=== PATIENT | female | born 1945 | race Caucasian/White ===

== ENCOUNTER → 2017-07-14 | Outpatient (CLI) | payer OTHER ==
[~2017-07-14] MED LIST: DEPO-MEDRO40 MG/1 ML IJ; DICLOFENAC POTA50 MG PO; GABAPENTIN100 MG PO; KENALOG-1010 MG/1 ML IJ; ORPHENADRI30 MG/1 M1 IJ; PERCOCET 5/321 UDTAB PO; POLY119PG PO; SURFAK240 M1 PO; TIZANIDINE HCL2 MG PO; TORADOL60 MG IM
== END | disposition home or self-care (01) ==
LOC: RAD 12:12
DX: M54.6 Pain in thoracic spine (principal); M54.5 Low back pain

== ENCOUNTER 2017-07-19 10:38 | Outpatient (CLI) | payer OTHER | END 2017-07-19 10:47 | disposition home or self-care (01) | LOC: SONOGRAMA 10:38 | DX: R10.2 Pelvic and perineal pain (principal) ==

== ENCOUNTER 2017-08-17 10:53 | Outpatient (CLI) | payer OTHER | END 2017-08-17 16:56 | disposition home or self-care (01) | LOC: MRI 10:53 | DX: M43.17 Spondylolisthesis, lumbosacral region (principal) | CPT/HCPCS: 72148 ==

== ENCOUNTER 2017-09-12 11:45 | Outpatient (CLI) | payer OTHER | END 2017-09-12 16:14 | disposition home or self-care (01) | LOC: RAD 11:45 | DX: M25.50 Pain in unspecified joint (principal); R26.2 Difficulty in walking, not elsewhere classified; E66.9 Obesity, unspecified ==

== ENCOUNTER 2017-12-14 10:48 | Outpatient (CLI) | payer OTHER | END 2017-12-14 16:33 | disposition home or self-care (01) | LOC: NUCLEAR 10:48 | DX: M81.0 Age-related osteoporosis without current pathological fracture (principal) ==

== ENCOUNTER 2018-01-11 09:29 | Outpatient (CLI) | payer OTHER | END 2018-01-11 12:02 | disposition home or self-care (01) | LOC: MRI 09:29 | DX: G80.8 Other cerebral palsy (principal) | CPT/HCPCS: 70553; A9579 ==

== ENCOUNTER 2018-01-18 07:36 | Outpatient (CLI) | payer OTHER | END 2018-01-18 07:54 | disposition home or self-care (01) | LOC: NUCLEAR 07:36 | DX: I20.0 Unstable angina (principal); I25.10 Atherosclerotic heart disease of native coronary artery without angina pectoris | CPT/HCPCS: 78452; 93017; A9500; J1250 ==

== ENCOUNTER 2018-03-10 11:59 | Outpatient (CLI) | payer OTHER | END 2018-03-10 17:00 | disposition home or self-care (01) | LOC: MRI 11:59 | DX: I67.1 Cerebral aneurysm, nonruptured (principal) | CPT/HCPCS: 70544 ==

== ENCOUNTER 2018-05-17 11:03 | Outpatient (CLI) | payer OTHER | END 2018-05-17 11:51 | disposition home or self-care (01) | LOC: SONOGRAMA 11:03 | DX: N93.8 Other specified abnormal uterine and vaginal bleeding (principal); N94.6 Dysmenorrhea, unspecified ==

== ENCOUNTER 2018-08-02 08:58 | Outpatient (CLI) | payer OTHER | END 2018-08-02 09:05 | disposition home or self-care (01) | LOC: MAMO-SONO 08:58 | DX: R10.84 Generalized abdominal pain (principal) ==

== ENCOUNTER 2018-10-10 10:13 | Outpatient (CLI) | payer OTHER | END 2018-10-10 14:42 | disposition home or self-care (01) | LOC: SONOGRAMA 10:13 → RAD 10:13 | DX: M25.562 Pain in left knee (principal); M25.561 Pain in right knee ==

== ENCOUNTER 2019-01-15 09:27 | Outpatient (CLI) | payer OTHER | END 2019-01-15 09:29 | disposition home or self-care (01) | LOC: TOM 09:27 | DX: K40.90 Unilateral inguinal hernia, without obstruction or gangrene, not specified as recurrent (principal) ==

== ENCOUNTER 2019-06-29 12:00 | Outpatient (CLI) | payer OTHER | END 2019-06-29 12:12 | disposition home or self-care (01) | LOC: RAD 12:00 | DX: M17.0 Bilateral primary osteoarthritis of knee (principal) ==

== ENCOUNTER 2020-02-13 09:22 | Outpatient (CLI) | payer OTHER | END 2020-02-13 09:36 | disposition home or self-care (01) | LOC: RAD 09:22 | PROVIDERS: ATTEND Orthopaedic Surgery Adult Reconstructive Orthopaedic Surgery | DX: M17.0 Bilateral primary osteoarthritis of knee (principal) ==

== ENCOUNTER → 2020-03-07 | Outpatient (CLI) | payer OTHER | END | disposition home or self-care (01) | LOC: NUCLEAR 09:00 | PROVIDERS: ATTEND Student in an Organized Health Care Education/Training Program | DX: I87.2 Venous insufficiency (chronic) (peripheral) (principal) ==

== ENCOUNTER 2020-03-31 09:59 | Outpatient (CLI) | payer OTHER | END 2020-03-31 10:04 | disposition home or self-care (01) | LOC: RAD 09:59 | PROVIDERS: ATTEND Orthopaedic Surgery | DX: M21.072 Valgus deformity, not elsewhere classified, left ankle (principal); M21.071 Valgus deformity, not elsewhere classified, right ankle; M79.671 Pain in right foot; M79.672 Pain in left foot ==

== ENCOUNTER 2020-04-11 08:32 | Outpatient (CLI) | payer OTHER | END 2020-04-11 08:58 | disposition home or self-care (01) | LOC: NUCLEAR 08:32 | PROVIDERS: ATTEND Orthopaedic Surgery | DX: M25.562 Pain in left knee (principal); Z96.652 Presence of left artificial knee joint; M81.0 Age-related osteoporosis without current pathological fracture | CPT/HCPCS: 77080; 78315; A9503 ==

== ENCOUNTER 2020-05-26 10:24 | Outpatient (CLI) | payer OTHER | END 2020-05-26 18:00 | disposition home or self-care (01) | LOC: LAB 10:24 | PROVIDERS: ATTEND Orthopaedic Surgery | DX: E21.2 Other hyperparathyroidism (principal); E55.9 Vitamin D deficiency, unspecified; M85.88 Other specified disorders of bone density and structure, other site; E88.89 Other specified metabolic disorders; M81.8 Other osteoporosis without current pathological fracture; E56.1 Deficiency of vitamin K ==

== ENCOUNTER 2020-05-30 13:09 | Outpatient (CLI) | payer OTHER | END 2020-05-30 15:17 | disposition home or self-care (01) | LOC: NUCLEAR 13:09 | PROVIDERS: ATTEND Orthopaedic Surgery | DX: M25.562 Pain in left knee (principal); Z96.652 Presence of left artificial knee joint | CPT/HCPCS: 78802; A9556 ==

== ENCOUNTER 2020-06-30 04:07 | Outpatient (CLI) | payer OTHER | END 2020-06-30 04:08 | disposition home or self-care (01) | LOC: PPH VACUNA 04:07 | PROVIDERS: ATTEND Emergency Medicine Pediatric Emergency Medicine | DX: Z23 Encounter for immunization (principal) ==

== ENCOUNTER 2020-07-21 17:17 | Outpatient (CLI) | payer OTHER | END 2020-07-21 17:18 | disposition home or self-care (01) | LOC: PPH VACUNA 17:17 | PROVIDERS: ATTEND Emergency Medicine Pediatric Emergency Medicine | DX: Z23 Encounter for immunization (principal) ==

== ENCOUNTER 2020-08-11 10:29 | Outpatient (CLI) | payer OTHER | END 2020-08-11 10:31 | disposition home or self-care (01) | LOC: NUCLEAR 10:29 | PROVIDERS: ATTEND Orthopaedic Surgery | DX: I87.2 Venous insufficiency (chronic) (peripheral) (principal); I80.11 Phlebitis and thrombophlebitis of right femoral vein ==

== ENCOUNTER 2020-12-30 10:32 | Outpatient (CLI) | payer OTHER ==
[~2020-12-30 10:32] MED LIST changes: +ETODOLAC300 MG PO; +ETODOLAC600 MG PO
== END 2020-12-30 10:43 | disposition home or self-care (01) ==
LOC: RAD 10:32
DX: M43.17 Spondylolisthesis, lumbosacral region (principal); M54.5 Low back pain

== ENCOUNTER 2021-05-05 09:36 | Outpatient (CLI) | payer OTHER ==
[~2021-05-05 09:36] MED LIST changes: +DICLOFENAC EPO1 EACH TD
== END 2021-05-05 09:41 | disposition home or self-care (01) ==
LOC: RAD 09:36
PROVIDERS: ATTEND Internal Medicine Pulmonary Disease
DX: I10 Essential (primary) hypertension (principal); R06.02 Shortness of breath; J45.40 Moderate persistent asthma, uncomplicated; G47.33 Obstructive sleep apnea (adult) (pediatric); J30.1 Allergic rhinitis due to pollen

== ENCOUNTER 2021-05-07 10:29 | Outpatient (CLI) | payer OTHER | END 2021-05-07 10:43 | disposition home or self-care (01) | LOC: SONOGRAMA 10:29 | PROVIDERS: ATTEND Internal Medicine Endocrinology, Diabetes & Metabolism | DX: E04.1 Nontoxic single thyroid nodule (principal); E04.8 Other specified nontoxic goiter ==

== ENCOUNTER 2021-05-26 08:56 | Outpatient (CLI) | payer OTHER | END 2021-05-26 09:02 | disposition home or self-care (01) | LOC: TOM 08:56 | PROVIDERS: ATTEND Emergency Medicine | DX: Q24.8 Other specified congenital malformations of heart (principal) ==

== ENCOUNTER 2021-07-07 10:01 | Outpatient (CLI) | payer OTHER | END 2021-07-07 14:33 | disposition home or self-care (01) | LOC: LAB 10:01 | PROVIDERS: ATTEND Orthopaedic Surgery | DX: E55.9 Vitamin D deficiency, unspecified (principal); M85.9 Disorder of bone density and structure, unspecified; E56.1 Deficiency of vitamin K; E21.3 Hyperparathyroidism, unspecified; E88.9 Metabolic disorder, unspecified; M81.8 Other osteoporosis without current pathological fracture; D64.9 Anemia, unspecified ==

== ENCOUNTER 2021-08-11 09:58 | Outpatient (CLI) | payer OTHER | END 2021-08-11 10:06 | disposition home or self-care (01) | LOC: TOM 09:58 | DX: K57.32 Diverticulitis of large intestine without perforation or abscess without bleeding (principal) ==

== ENCOUNTER 2021-08-13 08:00 | Outpatient (CLI) | payer OTHER | END 2021-08-13 08:30 | disposition home or self-care (01) | LOC: PPH VACUNA 08:00 | PROVIDERS: ATTEND Emergency Medicine Pediatric Emergency Medicine | DX: Z23 Encounter for immunization (principal) ==

== ENCOUNTER 2022-01-22 08:39 | Outpatient (CLI) | payer OTHER | END 2022-01-22 08:45 | disposition home or self-care (01) | LOC: TOM 08:39 | PROVIDERS: ATTEND Internal Medicine Gastroenterology | DX: K57.30 Diverticulosis of large intestine without perforation or abscess without bleeding (principal) | CPT/HCPCS: 74177; Q9965 ==

== ENCOUNTER 2022-05-18 10:44 | Outpatient (CLI) | payer OTHER | END 2022-05-18 10:53 | disposition home or self-care (01) | LOC: RAD 10:44 | PROVIDERS: ATTEND Student in an Organized Health Care Education/Training Program | DX: M25.559 Pain in unspecified hip (principal); M25.562 Pain in left knee; M22.41 Chondromalacia patellae, right knee ==

== ENCOUNTER 2022-06-03 11:19 | Outpatient (CLI) | payer OTHER | END 2022-06-03 11:31 | disposition home or self-care (01) | LOC: SONOGRAMA 11:19 | PROVIDERS: ATTEND Physical Medicine & Rehabilitation | DX: M25.512 Pain in left shoulder (principal); M25.511 Pain in right shoulder ==

== ENCOUNTER 2022-07-09 09:35 | Outpatient (CLI) | payer OTHER | END 2022-07-09 09:47 | disposition home or self-care (01) | LOC: TOM 09:35 | PROVIDERS: ATTEND Internal Medicine | DX: I31.8 Other specified diseases of pericardium (principal) ==

== ENCOUNTER → 2022-09-01 | Outpatient (CLI) | payer OTHER | END | disposition home or self-care (01) | LOC: TOM 09:54 | DX: K57.92 Diverticulitis of intestine, part unspecified, without perforation or abscess without bleeding (principal) ==

== ENCOUNTER 2022-12-10 10:35 | Outpatient (CLI) | payer OTHER | END 2022-12-10 10:39 | disposition home or self-care (01) | LOC: RAD 10:35 | DX: J45.40 Moderate persistent asthma, uncomplicated (principal) ==

== ENCOUNTER 2023-01-27 07:54 | Outpatient (CLI) | payer OTHER | END 2023-01-27 07:59 | disposition home or self-care (01) | LOC: NUCLEAR 07:54 | PROVIDERS: ATTEND Student in an Organized Health Care Education/Training Program | DX: I80.291 Phlebitis and thrombophlebitis of other deep vessels of right lower extremity (principal) ==

== ENCOUNTER 2023-12-12 09:48 | Outpatient (CLI) | payer OTHER | END 2023-12-12 09:57 | disposition home or self-care (01) | LOC: TOM 09:48 | PROVIDERS: ATTEND Internal Medicine | DX: M15.0 Primary generalized (osteo)arthritis (principal); M75.52 Bursitis of left shoulder; M75.51 Bursitis of right shoulder ==

== ENCOUNTER 2024-02-07 09:12 | Outpatient (CLI) | payer OTHER | END 2024-02-07 09:18 | disposition home or self-care (01) | LOC: TOM 09:12 | PROVIDERS: ATTEND Student in an Organized Health Care Education/Training Program | DX: K57.33 Diverticulitis of large intestine without perforation or abscess with bleeding (principal) ==

== ENCOUNTER 2024-02-15 13:04 | Outpatient (CLI) | payer OTHER ==
[~2024-02-15 13:04] MED LIST changes: +MEDROLPACK PO; +VOLTAREN ARTHRI20 GM TOP
== END 2024-02-15 13:10 | disposition home or self-care (01) ==
LOC: SONOGRAMA 13:04
PROVIDERS: ATTEND Physical Medicine & Rehabilitation
DX: M25.512 Pain in left shoulder (principal)

== ENCOUNTER 2024-03-08 11:23 | Outpatient (CLI) | payer OTHER | END 2024-03-08 11:30 | disposition home or self-care (01) | LOC: RAD 11:23 | DX: J45.20 Mild intermittent asthma, uncomplicated (principal) ==

== ENCOUNTER 2024-03-26 09:41 | Outpatient (CLI) | payer OTHER | END 2024-03-26 09:47 | disposition home or self-care (01) | LOC: MRI 09:41 | PROVIDERS: ATTEND Orthopaedic Surgery | DX: M17.11 Unilateral primary osteoarthritis, right knee (principal); K59.00 Constipation, unspecified | CPT/HCPCS: 73721 ==

== ENCOUNTER 2024-12-05 10:25 | Outpatient (CLI) | payer OTHER | END 2024-12-05 10:27 | disposition home or self-care (01) | LOC: RAD 10:25 | PROVIDERS: ATTEND Orthopaedic Surgery | DX: M25.561 Pain in right knee (principal); M25.562 Pain in left knee ==

== ENCOUNTER 2025-03-29 10:53 | Outpatient (CLI) | payer OTHER | END 2025-03-29 10:57 | disposition home or self-care (01) | LOC: MRI 10:53 | PROVIDERS: ATTEND Psychiatry & Neurology Pain Medicine | DX: R51.9 Headache, unspecified (principal); I67.89 Other cerebrovascular disease | CPT/HCPCS: 70551 ==